=== PATIENT | male | born 1955 | race Caucasian/White ===

== ENCOUNTER → 2019-01-21 10:48 | Outpatient (CLI) | payer OTHER, SELFPAY ==
[2019-01-21 10:29] VITALS: BMI 34.0
[2019-01-21 12:39] LABS: ALB/GLOB Ratio 1.1 RATIO (0.9-2.4); AST(SGOT) 23 U/L (15-37); Alanine Aminotransfer ALT/SGPT 20 U/L (16-61); Albumin, Serum 3.8 g/dL (3.2-5.0); Alkaline Phosphatase 106 U/L (45-117); Anion Gap 6 (5-15); BUN 5 mg/dL (7-18); BUN/Creat Ratio 4.8 RATIO (10-20); Calcium,Total 8.7 mg/dL (8.5-10.1); Chloride 106 mmol/L (98-107); Cholesterol 177 mg/dL (200); Creatinine, Serum 1.04 mg/dL (0.70-1.30); EST Glomerular Filtration Rate 77 mL/min (>60); Est Glom Filt Rate - Afr Amer 93 mL/min (>60); Globulin 3.5 g/dL (2.2-4.2); Glucose 89 mg/dL (74-106); High Density Lipoprotein 31 mg/dL; Potassium 4.1 mmol/L (3.5-5.1); Protein, Total 7.3 g/dL (6.4-8.2); Sodium Level 140 mmol/L (136-145); Triglycerides 194 mg/dL; Very Low Density Lipoprotein 39 mg/dL (5-40)
== END ==
PROVIDERS: PCP Internal Medicine; Visit Provider Internal Medicine
DX: E78.5 Hyperlipidemia, unspecified (principal)
CPT/HCPCS: 36415; 80053; 80061

== ENCOUNTER → 2019-02-15 13:31 | Outpatient (CLI) | payer OTHER, SELFPAY ==
[2019-01-21 10:29] VITALS: BMI 34.0
[2019-02-04 14:40] VITALS: BMI 34.0
--- NOTE | 2019-02-15 13:34 | CT_ITS ---
STUDY: LOW DOSE CT LUNG CANCER SCREENING REASON FOR EXAM: Male, 63 years old. 60 pack-year smoking history. RADIATION DOSAGE (If Supplied By Facility): CTDIvol = ( 3.40 ) mGy, DLP = ( 114.01 ) mGycm TECHNIQUE: No contrast was administered. Low dose technique was utilized (average mAS-38 and kVp 120). 1.25 mm axial source images with a slice interval of 1.25-mm were reconstructed in lung windows. 2.5 mm axial source images with a slice interval of 2.5-mm were reconstructed in lung windows. 5.0 mm axial source images with a slice interval of 5.0-mm were reconstructed in soft tissue windows. Nodule measured using lung windows on PACS and/or independent workstation with automated measurement of minimum and maximum diameter. Nodule measurement reported as average diameter rounded to the nearest whole number. Growth is defined as an increase ins size of greater than 1.5 mm. COMPARISON: None. NODULES: Total lung nodules (excluding granulomas): 0 Emphysema: There is mild emphysematous changes throughout both lungs. Endobronchial lesion: None Aorta: Minimal atherosclerotic changes of the thoracic aorta without aneurysm. Coronary arteries: Mild coronary artery calcifications. Heart: Normal in size. Pulmonary artery: Normal in size. Mediastinal nodes: There is a single 1.4 x 0.6 x 0.7 cm peritracheal lymph node. No other lymphadenopathy is noted. Other chest and abdominal findings: Minimal degenerative changes of the thoracic spine. CT/Low Dose CT Lung Screening IMPRESSION: Lung-RADS category 1 - Continue annual screening with LDCT in 12 months. IMPORTANT NOTES FOR USE: ACR Lung-RADS Version 1.0 Assessment Categories Release Date: October 31, 2013 Category: Coded 0-4 bases on nodule(s) with highest degree of suspicion. Negative screen is defined as categories 1 and 2; a positive screen is defined as categories 3 and 4. Category 3 and 4A nodules that are unchanged on interval CT should be coded as category 2, and individuals returned to screening in 12 months. Category 4X: Category 3 or 4 nodules with additional imaging findings that increase the suspicion of lung cancer, such as spiculation, GGN that doubles in size in 1 year, enlarged lymph notes, etc. Category Modifiers: S (significant finding unrelated to lung cancer) and C (prior history of treated lung cancer) may be added to the 0-4 Lung-RADS Electronically Signed: Román Craft DO at 22:31 EDT Tel [phone], Service support ,
== END ==
PROVIDERS: Family Provider Internal Medicine; PCP Internal Medicine; Referring Provider Internal Medicine; Visit Provider Internal Medicine
DX: Z12.2 Encounter for screening for malignant neoplasm of respiratory organs (principal); F17.210 Nicotine dependence, cigarettes, uncomplicated
CPT/HCPCS: G0297

== ENCOUNTER → 2020-01-30 13:33 | Outpatient (CLI) | payer OTHER, SELFPAY ==
[2020-01-30 13:17] VITALS: BMI 34.0
[2020-01-30 15:07] LABS: Absolute Lymphocyte Count 3.12 X10^3/uL (0.83-4.51); Absolute Neutrophil Count 5.4 X10^3/uL (2.0-7.7); Basophil# 0.05 X10^3/uL; Basophil% 0.5 % (0-1); Eosinophil# 0.25 X10^3/uL; Eosinophils% 2.6 % (0-5); Hematocrit 41.5 % (40-54); Hemoglobin 13.8 g/dL (13.0-16.5); Lymphocyte # 3.12 X10^3/ul (4.0); Lymphocyte % 32.7 % (19-41); Mean Corp Hgb Conc 33.3 g/dL (32-36); Mean Corpuscular Hgb 30.1 pg (27.0-32.0); Mean Corpuscular Volume 90.4 fL (80-94); Mean Platelet Vol. 9.6 fl (6.2-12.0); Monocyte# 0.72 X10^3/uL; Monocyte% 7.6 % (0-10); NRBC Flagged by Analyzer 0 % (0-5); Neutrophil # 5.37 X10^3/uL (2.7-7.7); Neutrophil % 56.4 % (47-70); Platelet Count 299 K/mm3 (150-450); RBC Distribution Width CV 13.2 % (11.6-14.6); RBC Distribution Width SD 43.3 fl (35.1-43.9); Red Blood Count 4.59 M/mm3 (4.6-6.2); White Blood Count 9.5 K/mm3 (4.4-11.0)
[2020-01-30 15:29] LABS: ALB/GLOB Ratio 1.1 RATIO (0.9-2.4); AST(SGOT) 23 U/L (15-37); Alanine Aminotransfer ALT/SGPT 23 U/L (16-61); Alkaline Phosphatase 91 U/L (45-117); Anion Gap 2 (5-15); BUN 10 mg/dL (7-18); BUN/Creat Ratio 10.5 RATIO (10-20); Calcium,Total 8.8 mg/dL (8.5-10.1); Chloride 106 mmol/L (98-107); Cholesterol 166 mg/dL (200); Creatinine, Serum 0.95 mg/dL (0.70-1.30); EST Glomerular Filtration Rate 85 mL/min (>60); Est Glom Filt Rate - Afr Amer 103 mL/min (>60); Globulin 3.6 g/dL (2.2-4.2); Glucose 90 mg/dL (74-106); High Density Lipoprotein 30 mg/dL; PSA,Total - Annual Screen 0.78 ng/mL (0.00-4.00); Potassium 4.1 mmol/L (3.5-5.1); Protein, Total 7.6 g/dL (6.4-8.2); Sodium Level 136 mmol/L (136-145); Triglycerides 158 mg/dL; Very Low Density Lipoprotein 32 mg/dL (5-40)
== END ==
PROVIDERS: PCP Internal Medicine; Referring Provider Internal Medicine; Visit Provider Internal Medicine
DX: Z00.00 Encounter for general adult medical examination without abnormal findings (principal); E78.5 Hyperlipidemia, unspecified; F32.9 Major depressive disorder, single episode, unspecified; F41.9 Anxiety disorder, unspecified
CPT/HCPCS: 36415; 80053; 80061; 84153; 85025; G0103

== ENCOUNTER → 2021-01-21 13:31 | Outpatient (CLI) | payer MEDICARE, SELFPAY ==
[2021-01-21 13:12] VITALS: BMI 34.0
[2021-01-21 15:12] LABS: Absolute Lymphocyte Count 2.67 X10^3/uL (0.83-4.51); Absolute Neutrophil Count 5.8 X10^3/uL (2.0-7.7); Basophil# 0.06 X10^3/uL; Basophil% 0.6 % (0-1); Eosinophil# 0.21 X10^3/uL; Eosinophils% 2.2 % (0-5); Hematocrit 45.5 % (40-54); Lymphocyte # 2.67 X10^3/ul (0.83-4.51); Lymphocyte % 28.2 % (19-41); Mean Corpuscular Hgb 29.6 pg (27.0-32.0); Mean Corpuscular Volume 89.9 fL (80-94); Mean Platelet Vol. 9.4 fl (6.2-12.0); Monocyte# 0.66 X10^3/uL; NRBC Flagged by Analyzer 0 % (0-5); Neutrophil # 5.84 X10^3/uL (2.7-7.7); Neutrophil % 61.6 % (47-70); Platelet Count 332 K/mm3 (150-450); RBC Distribution Width CV 13.4 % (11.6-14.6); RBC Distribution Width SD 43.9 fl (35.1-43.9); Red Blood Count 5.06 M/mm3 (4.6-6.2); White Blood Count 9.5 K/mm3 (4.4-11.0)
[2021-01-21 15:47] LABS: ALB/GLOB Ratio 1.1 RATIO (0.9-2.4); AST(SGOT) 16 U/L (15-37); Alanine Aminotransfer ALT/SGPT 21 U/L (16-61); Albumin, Serum 3.9 g/dL (3.2-5.0); Alkaline Phosphatase 89 U/L (45-117); Anion Gap 4 (5-15); BUN 6 mg/dL (7-18); BUN/Creat Ratio 6.7 RATIO (10-20); Calcium,Total 9.1 mg/dL (8.5-10.1); Chloride 106 mmol/L (98-107); Cholesterol 170 mg/dL (200); EST Glomerular Filtration Rate 90 mL/min (>60); Est Glom Filt Rate - Afr Amer 109 mL/min (>60); Globulin 3.5 g/dL (2.2-4.2); Glucose 88 mg/dL (74-106); High Density Lipoprotein 28 mg/dL; Protein, Total 7.4 g/dL (6.4-8.2); Sodium Level 138 mmol/L (136-145); Triglycerides 195 mg/dL; Very Low Density Lipoprotein 39 mg/dL (5-40)
== END ==
PROVIDERS: PCP Internal Medicine; Visit Provider Internal Medicine
DX: E78.5 Hyperlipidemia, unspecified (principal); N40.0 Benign prostatic hyperplasia without lower urinary tract symptoms
CPT/HCPCS: 36415; 80053; 80061; 85025

== ENCOUNTER → 2022-02-24 | Outpatient (CLI) | payer MEDICARE, SELFPAY ==
[2022-02-24 15:03] LABS: Absolute Lymphocyte Count 3.37 X10^3/uL (0.83-4.51); Absolute Neutrophil Count 4.9 X10^3/uL (2.0-7.7); Basophil# 0.05 X10^3/uL; Basophil% 0.5 % (0-1); Eosinophil# 0.19 X10^3/uL; Eosinophils% 2.1 % (0-5); Hematocrit 43.6 % (40-54); Hemoglobin 14.6 g/dL (13.0-16.5); Lymphocyte # 3.37 X10^3/ul (0.83-4.51); Lymphocyte % 36.6 % (19-41); Mean Corp Hgb Conc 33.5 g/dL (32-36); Mean Corpuscular Hgb 30.1 pg (27.0-32.0); Mean Corpuscular Volume 89.9 fL (80-94); Mean Platelet Vol. 9.6 fl (6.2-12.0); Monocyte# 0.63 X10^3/uL; Monocyte% 6.8 % (0-10); NRBC Flagged by Analyzer 0 % (0-5); Neutrophil # 4.94 X10^3/uL (2.7-7.7); Neutrophil % 53.7 % (47-70); Platelet Count 307 K/mm3 (150-450); RBC Distribution Width CV 13.5 % (11.6-14.6); RBC Distribution Width SD 44.1 fl (35.1-43.9); Red Blood Count 4.85 M/mm3 (4.6-6.2); White Blood Count 9.2 K/mm3 (4.4-11.0)
[2022-02-24 15:38] LABS: ALB/GLOB Ratio 1.1 RATIO (0.9-2.4); AST(SGOT) 22 U/L (15-37); Alanine Aminotransfer ALT/SGPT 27 U/L (16-61); Albumin, Serum 3.9 g/dL (3.2-5.0); Alkaline Phosphatase 81 U/L (45-117); Anion Gap 6 (5-15); BUN 8 mg/dL (7-18); BUN/Creat Ratio 8.5 RATIO (10-20); Calcium,Total 8.8 mg/dL (8.5-10.1); Chloride 105 mmol/L (98-107); Cholesterol 161 mg/dL (200); Creatinine, Serum 0.94 mg/dL (0.70-1.30); EST Glomerular Filtration Rate 85 mL/min (>60); Est Glom Filt Rate - Afr Amer 103 mL/min (>60); Globulin 3.7 g/dL (2.2-4.2); Glucose 87 mg/dL (74-106); High Density Lipoprotein 30 mg/dL; PSA,Total - Annual Screen 1.08 ng/mL (0.00-4.00); Potassium 4.3 mmol/L (3.5-5.1); Protein, Total 7.6 g/dL (6.4-8.2); Sodium Level 139 mmol/L (136-145); Triglycerides 153 mg/dL; Very Low Density Lipoprotein 31 mg/dL (5-40)
== END | disposition home or self-care (01) ==
LOC: BIMLAB 13:24
PROVIDERS: PCP Internal Medicine; Visit Provider Internal Medicine
DX: M54.9 Dorsalgia, unspecified (principal); F41.9 Anxiety disorder, unspecified; F32.9 Major depressive disorder, single episode, unspecified; E78.5 Hyperlipidemia, unspecified; N40.0 Benign prostatic hyperplasia without lower urinary tract symptoms; Z12.5 Encounter for screening for malignant neoplasm of prostate
CPT/HCPCS: 36415; 80053; 80061; 84153; 85025; G0103

== ENCOUNTER → 2022-11-17 | Outpatient (CLI) | payer MEDICARE, SELFPAY ==
[2022-11-17 16:02] LABS: Absolute Lymphocyte Count 2.73 X10^3/uL (0.83-4.51); Absolute Neutrophil Count 7.3 X10^3/uL (2.0-7.7); Basophil# 0.06 X10^3/uL; Basophil% 0.5 % (0-1); Eosinophil# 0.14 X10^3/uL; Eosinophils% 1.3 % (0-5); Hematocrit 44.6 % (40-54); Hemoglobin 14.8 g/dL (13.0-16.5); Lymphocyte # 2.73 X10^3/ul (0.83-4.51); Lymphocyte % 24.6 % (19-41); Mean Corp Hgb Conc 33.2 g/dL (32-36); Mean Corpuscular Hgb 30.1 pg (27.0-32.0); Mean Corpuscular Volume 90.8 fL (80-94); Mean Platelet Vol. 9.3 fl (6.2-12.0); Monocyte# 0.83 X10^3/uL; Monocyte% 7.5 % (0-10); NRBC Flagged by Analyzer 0 % (0-5); Neutrophil # 7.31 X10^3/uL (2.7-7.7); Neutrophil % 65.7 % (47-70); Platelet Count 324 K/mm3 (150-450); RBC Distribution Width CV 13.2 % (11.6-14.6); RBC Distribution Width SD 44.5 fl (35.1-43.9); Red Blood Count 4.91 M/mm3 (4.6-6.2); White Blood Count 11.1 K/mm3 (4.4-11.0)
[2022-11-17 16:35] LABS: ALB/GLOB Ratio 1.2 RATIO (0.9-2.4); AST(SGOT) 18 U/L (15-37); Alanine Aminotransfer ALT/SGPT 18 U/L (16-61); Albumin, Serum 4.2 g/dL (3.2-5.0); Alkaline Phosphatase 81 U/L (45-117); Anion Gap 8 (5-15); BUN 12 mg/dL (7-18); Calcium,Total 9.3 mg/dL (8.5-10.1); Chloride 104 mmol/L (98-107); Cholesterol 163 mg/dL (200); EST Glomerular Filtration Rate 79 mL/min (>60); Est Glom Filt Rate - Afr Amer 96 mL/min (>60); Globulin 3.4 g/dL (2.2-4.2); Glucose 91 mg/dL (74-106); High Density Lipoprotein 32 mg/dL; Potassium 4.4 mmol/L (3.5-5.1); Protein, Total 7.6 g/dL (6.4-8.2); Sodium Level 137 mmol/L (136-145); Triglycerides 162 mg/dL; Very Low Density Lipoprotein 32 mg/dL (5-40)
== END | disposition home or self-care (01) ==
LOC: BIMLAB 13:47
PROVIDERS: PCP Internal Medicine; Referring Provider Internal Medicine; Visit Provider Internal Medicine
DX: N40.0 Benign prostatic hyperplasia without lower urinary tract symptoms (principal); E78.5 Hyperlipidemia, unspecified
CPT/HCPCS: 36415; 80053; 80061; 84153; 85025

== ENCOUNTER → 2023-09-01 | Outpatient (CLI) | payer MEDICARE, SELFPAY ==
--- NOTE | 2023-09-01 16:06 | CT_ITS ---
EXAM: CT CHEST, LUNG CANCER SCREENING WITHOUT INTRAVENOUS CONTRAST CLINICAL INDICATION: Lung cancer screening -- and gt;20 pack year asymptomatic, current smoker TECHNIQUE: Helically acquired images were obtained of the chest without intravenous contrast using low dose (LDCT) lung cancer screening protocol. This CT exam was performed using one or more of the following dose reduction techniques: automated exposure control, adjustment of the mA and/or kV according to patient size, and/or use of iterative reconstruction technique. COMPARISON: CT Lung Cancer Screening dated 02/15/2019 FINDINGS: LUNGS AND PLEURAL SPACES: Diffuse centrilobular pulmonary emphysema. No evidence of lung mass or nodule. No pleural effusion or thickening. No pneumothorax. HEART: Normal. No pericardial effusion. Normal heart size. Mild coronary artery calcification. MEDIASTINUM: Normal. No mediastinal or hilar adenopathy. Esophagus is unremarkable. No hiatal hernia. THYROID: Normal. No thyroid nodules or calcification. BONES/JOINTS: No suspicious lytic or blastic abnormality. VASCULATURE: No aortic aneurysm. LYMPH NODES: Normal. No enlarged lymph nodes. CT/Low Dose CT Lung Screening IMPRESSION: 1. No evidence of a lung mass or nodule. 2. Centrilobular pulmonary emphysema. Lung-RADS score: 1S - Negative. Additional clinically significant or potentially clinically significant findings are described. Recommend continued annual screening with a low-dose CT (LDCT) in 12 months. Electronically Signed: Luis Fernando Murguia MD at 16:51 EST ,
== END | disposition home or self-care (01) ==
LOC: CT 16:05
PROVIDERS: PCP Internal Medicine; Referring Provider Nurse Practitioner Family; Visit Provider Nurse Practitioner Family
DX: Z12.2 Encounter for screening for malignant neoplasm of respiratory organs (principal); Z87.891 Personal history of nicotine dependence
CPT/HCPCS: 71271

== ENCOUNTER → 2023-11-18 | Outpatient (CLI) | payer MEDICARE, SELFPAY ==
[2023-11-18 16:56] LABS: Absolute Lymphocyte Count 3.09 X10^3/uL (0.83-4.51); Basophil# 0.09 X10^3/uL; Basophil% 0.9 % (0-1); Eosinophil# 0.24 X10^3/uL; Eosinophils% 2.3 % (0-5); Hematocrit 43.6 % (40-54); Hemoglobin 14.6 g/dL (13.0-16.5); Lymphocyte # 3.09 X10^3/ul (0.83-4.51); Lymphocyte % 29.9 % (19-41); Mean Corp Hgb Conc 33.5 g/dL (32-36); Mean Corpuscular Volume 89.5 fL (80-94); Mean Platelet Vol. 9.3 fl (6.2-12.0); Monocyte# 0.85 X10^3/uL; Monocyte% 8.2 % (0-10); NRBC Flagged by Analyzer 0 % (0-5); Neutrophil # 6.01 X10^3/uL (2.7-7.7); Neutrophil % 58.2 % (47-70); Platelet Count 332 K/mm3 (150-450); RBC Distribution Width CV 13.6 % (11.6-14.6); RBC Distribution Width SD 44.7 fl (35.1-43.9); Red Blood Count 4.87 M/mm3 (4.6-6.2); White Blood Count 10.3 K/mm3 (4.4-11.0)
[2023-11-18 17:20] LABS: ALB/GLOB Ratio 1.1 RATIO (0.9-2.4); AST(SGOT) 20 U/L (15-37); Alanine Aminotransfer ALT/SGPT 21 U/L (16-61); Albumin, Serum 3.7 g/dL (3.2-5.0); Alkaline Phosphatase 88 U/L (45-117); Anion Gap 4 (5-15); BUN 5 mg/dL (7-18); BUN/Creat Ratio 5.5 RATIO (10-20); Calcium,Total 8.8 mg/dL (8.5-10.1); Chloride 109 mmol/L (98-107); Cholesterol 140 mg/dL (200); EST Glomerular Filtration Rate 89 mL/min (>60); Est Glom Filt Rate - Afr Amer 107 mL/min (>60); Globulin 3.4 g/dL (2.2-4.2); Glucose 81 mg/dL (74-106); High Density Lipoprotein 36 mg/dL; PSA,Total - Annual Screen 1.64 ng/mL (0.00-4.00); Potassium 4.1 mmol/L (3.5-5.1); Protein, Total 7.1 g/dL (6.4-8.2); Sodium Level 138 mmol/L (136-145); Triglycerides 130 mg/dL; Very Low Density Lipoprotein 26 mg/dL (5-40)
== END | disposition home or self-care (01) ==
LOC: BIMLAB 15:09
PROVIDERS: PCP Internal Medicine; Visit Provider Internal Medicine
DX: Z12.5 Encounter for screening for malignant neoplasm of prostate (principal); E78.5 Hyperlipidemia, unspecified; F41.9 Anxiety disorder, unspecified; F32.9 Major depressive disorder, single episode, unspecified
CPT/HCPCS: 36415; 80053; 80061; 84153; 85025; G0103

== ENCOUNTER → 2023-12-08 | Outpatient (CLI) | payer MEDICARE, SELFPAY | END | disposition home or self-care (01) | LOC: PSN 09:39 | PROVIDERS: PCP Internal Medicine; Referring Provider Internal Medicine; Visit Provider Internal Medicine | DX: J44.9 Chronic obstructive pulmonary disease, unspecified (principal); R06.02 Shortness of breath | CPT/HCPCS: 94060; 94726; 94729 ==

== ENCOUNTER 2023-12-25 14:05 | Emergency (ER) | payer MEDICARE, SELFPAY ==
[2023-12-25 14:06] VITALS: BP 105/83; PULSE 100; RESP 16; TEMP 36.7; O2SAT 95; BMI 30.4
[2023-12-25 14:08] VITALS: BP 105/83; PULSE 101; RESP 16; TEMP 36.7; O2SAT 95
--- NOTE | 2023-12-25 14:20 | CT_ITS ---
STUDY: CT ABDOMEN AND PELVIS WITHOUT CONTRAST REASON FOR EXAM: Male, 68 years old. Right flank pain RADIATION DOSAGE (If Supplied By Facility): CTDIvol = ( 11.42 ) mGy, DLP = ( 564.70 ) mGycm TECHNIQUE: Transaxial images were obtained from the dome of the diaphragm to the symphysis pubis without oral contrast, and without intravenous contrast. Sagittal and coronal images were reconstructed. Individualized dose optimization techniques were used for this CT. COMPARISON: None. FINDINGS: Calcified granuloma in the right lower lobe. Coronary artery calcification. Normal liver. Normal gallbladder and extrahepatic biliary system. Normal spleen. Normal pancreas. Normal bilateral adrenal glands. Nonspecific bilateral perinephric stranding. Inflammatory process such as a urinary tract infection or Admission BE ruled out. There is a 3.3 cm x 2.9 cm cyst in the medial midportion of the left kidney. No obstructive uropathy is seen at this time. Incidental note is made of a left retroaortic renal vein. Normal visualized stomach. Normal small intestine. Normal colon. The appendix is visualized and appears normal. There is diffuse atherosclerotic calcification of the abdominal aorta, without a demonstrated aneurysm. Normal inferior vena cava. Normal retroperitoneum. Diffuse bladder wall thickening. Small inguinal hernias containing fat. Small bilateral inguinal lymph nodes. Straightening of the normal lumbar lordosis. Multilevel spondylosis and disc space narrowing. This is worse at the L5-S1 level. CT/Abdomen/Pelvis without Cont IMPRESSION: Diffuse bladder wall thickening. Nonspecific bilateral perinephric stranding. Urinary tract infection or pyelonephritis should BE ruled out. Electronically Signed: Manuel Rahman MD at 15:06 EDT ,
[2023-12-25] MEDS: Morphine 4 MG/ML Syringe IV (14:29)
[2023-12-25] MEDS: Ondansetron 4 MG/2 ML Vial IV (14:29)
[2023-12-25] MEDS: 0.9% Normal Saline (1000mL) 1,000 ML 999 ML IV (14:30)
--- NOTE | 2023-12-25 14:35 | EDS_ITS ---
HPI <CONCHITA Dial - Last Filed: 12/25/23 16:23> History of Present Illness Chief Complaint: Flank Pain Narrative Narrative: 68-year-old male states he woke up this morning and had severe right flank and side pain that radiates to the groin. He had a bowel movement with loose stools and felt somewhat better. He took a nap and after waking up the pain was severe again. He denies fever chills nausea or vomiting. No urinary symptoms. He states he is a chronic weak urine stream but has not noticed burning or hematuria. He does report months of intermittent abdominal pains that changes locations that he is always attributed to gas. He takes simethicone. He has a bowel movement about every 3 days and if he does not go he takes a laxative. He has not taken any laxatives this week. No abdominal surgical history. He smokes, denies alcohol use. [facility] <CONCHITA Dial - Last Filed: 12/25/23 16:23> [facility] Medical History (Updated 12/25/23 @ 16:18 by CONCHITA Dial) Impacted cerumen of left ear COPD (chronic obstructive pulmonary disease) Shortness of breath Encounter for screening for malignant neoplasm of lung Flu vaccine need Sinusitis Headache BPH (benign prostatic hyperplasia) Elevated blood pressure reading Change in skin mole Health care maintenance Compulsive behavior Anxiety and depression Decreased hearing of left ear Sleep disorder Vision problems Skin cancer H/O emotional problems Home Medications ?Medication ?Instructions ?Recorded ?Last Taken ?Type levocetirizine 5 mg tablet (Xyzal) 5 mg PO DAILY 05/21/23 Unknown History triamcinolone acetonide 55 mcg 1 spray intranasal DAILY 05/21/23 Unknown History nasal spray aerosol (Nasacort Allergy) trazodone 50 mg tablet 50 mg PO QHS PRN insomnia #90 tabs 08/28/23 Unknown Rx quetiapine 150 mg tablet,extended See Rx Instructions .Route 11/09/23 Unknown Rx release 24 hr .COMPLEX #90 TABLETS venlafaxine 150 mg tablet,extended 150 mg PO DAILY #90 tabs 11/09/23 Unknown Rx release 24 hr albuterol sulfate 90 mcg/actuation 2 puff inhalation Q6H PRN 11/18/23 Unknown Rx aerosol inhaler shortness of breath or wheezing #8.5 grams fluticasone fur. 100 mcg-umeclid 1 inh inhalation Q24H #60 ea 11/18/23 Unknown Rx 62.5 mcg-vilant 25 mcg inhalat.powder (Trelegy Ellipta) Allergy/AdvReac Type Severity Reaction Status Date / Time No Known Allergies Allergy Verified 12/25/23 14:09 Family History Other No history Surgical History History of colonoscopy History of removal of skin mole Social History Smoking Status: Current every day smoker tobacco type: cigarettes alcohol intake: current alcohol intake frequency: a few times a month Alcohol type: beer substance use type: does not use what type of physical activity do you participate in: none ROS <CONCHITA Dial - Last Filed: 12/25/23 16:23> ROS ED ROS Narrative Constitutional: Negative for fever, chills, malaise. CVS: Negative for chest pain. Respiratory: Negative for shortness of breath, cough. GI: Positive for abdominal pain. Negative for nausea, vomiting, melena, hematochezia. : Negative for dysuria, hematuria or frequency. EXAM <CONCHITA Dial - Last Filed: 12/25/23 16:23> Physical Exam Narrative Exam Narrative: CONST: Patient sitting in no acute distress. EYES: Normal inspection. NECK: Normal inspection. RESP: No respiratory distress, CTAB. CVS: Regular rate and rhythm, no murmur, no gallop. ABD: Soft with right lower quadrant tenderness, no guarding or rebound, nondistended, no hepatosplenomegaly. Back: Normal inspection, mild right CVA tenderness. SKIN: Color normal, no rash, warm, dry, intact. EXTREMITIES: Normal appearance, no pedal edema. NEURO: Alert and answering questions appropriately. PSYCH: Normal affect. Const Vital Signs: 12/25/23 14:06 12/25/23 14:08 12/25/23 15:08 Temperature 98.1 F 98.1 F 97.8 F Temperature Source Temporal Temporal Axillary Pulse Rate 100 101 H 81 Respiratory Rate 16 16 18 Blood Pressure 105/83 H 105/83 H 111/79 Blood Pressure Mean 90 90 89 Pulse Ox 95 95 98 Oxygen Delivery Method Room Air Room Air 12/25/23 16:22 Temperature 98.6 F Temperature Source Pulse Rate 88 Respiratory Rate 18 Blood Pressure 111/78 Blood Pressure Mean 89 Pulse Ox 98 Oxygen Delivery Method <Dr. Jose Del Toro DO - Last Filed: 12/25/23 20:15> Physical Exam Const Vital Signs: 12/25/23 14:06 12/25/23 14:08 12/25/23 15:08 Temperature 98.1 F 98.1 F 97.8 F Temperature Source Temporal Temporal Axillary Pulse Rate 100 101 H 81 Respiratory Rate 16 16 18 Blood Pressure 105/83 H 105/83 H 111/79 Blood Pressure Mean 90 90 89 Pulse Ox 95 95 98 Oxygen Delivery Method Room Air Room Air 12/25/23 16:22 Temperature 98.6 F Temperature Source Pulse Rate 88 Respiratory Rate 18 Blood Pressure 111/78 Blood Pressure Mean 89 Pulse Ox 98 Oxygen Delivery Method MDM <CONCHITA Dial - Last Filed: 12/25/23 16:23> [facility] Narrative Medical decision making narrative: Differential: Kidney stone, pyelonephritis, UTI, appendicitis, constipation Patient has right flank and right lower abdominal pain. Reports 1 episode of loose stool earlier, otherwise no associated symptoms. He appears well and nontoxic. Vital signs stable. He has mild right flank and right lower quadrant tenderness on exam. No peritoneal signs. CBC and BMP are unremarkable. CT scan shows nonspecific bilateral perinephric stranding and bladder wall thickening but urinalysis is negative. Not sure of the etiology of the patient's symptoms. After treatment with morphine and Toradol here he is feeling improved, I discussed alternating Tylenol Motrin at home and following up with his primary care doctor. He was discharged in stable condition. Lab Data Attestation: I reviewed the patient's lab results. Labs: Laboratory Results - last 24 hr 12/25/23 12/25/23 14:25 15:32 WBC 9.8 RBC 4.86 Hgb 14.3 Hct 43.8 MCV 90.1 MCH 29.4 MCHC 32.6 RDW Std Deviation 45.8 H RDW Coeff of Melina 13.7 Plt Count 310 MPV 8.9 Immature Gran % (Auto) 0.400 Neut % (Auto) 65.2 Lymph % (Auto) 24.3 Emmet % (Auto) 6.8 Eos % (Auto) 2.6 Baso % (Auto) 0.7 Absolute Neuts (auto) 6.4 Absolute Lymphs (auto) 2.38 Nucleated RBC % 0 Sodium 136 Potassium 4.4 Chloride 105 Carbon Dioxide 26.0 Anion Gap 5 BUN 8 Creatinine 1.07 Estim Creat Clear Calc 72.27 Est GFR (MDRD) Af Amer 88 Est GFR (MDRD) Non-Af 73 BUN/Creatinine Ratio 7.5 L Glucose 120 H Calcium 9.2 Urine Color Yellow Urine Clarity Clear Urine pH 6.5 Ur Specific [place] 1.010 Urine Protein Negative Urine Glucose (UA) Normal Urine Ketones Negative Urine Occult Blood Negative Urine Nitrite Negative Urine Bilirubin Negative Urine Urobilinogen Normal Ur Leukocyte Esterase Negative Urine RBC 0 SEEN Urine WBC 0 SEEN Ur Squamous Epith Cells 0 SEEN Urine Bacteria 0 SEEN Urine Mucus 0 SEEN Radiography Diagnostic Testing: Clinical Impression(s) from Imaging Studies Abdomen/Pelvis CT 12/25/23 14:20 IMPRESSION: Diffuse bladder wall thickening. Nonspecific bilateral perinephric stranding. Urinary tract infection or pyelonephritis should BE ruled out. Electronically Signed: Manuel Rahman MD at 15:06 EDT , <Dr. Jose Del Toro, DO - Last Filed: 12/25/23 20:15> MDM MDM Narrative Medical decision making narrative: Differential: Kidney stone, pyelonephritis, UTI, appendicitis, constipation Patient has right flank and right lower abdominal pain. Reports 1 episode of loose stool earlier, otherwise no associated symptoms. He appears well and nontoxic. Vital signs stable. He has mild right flank and right lower quadrant tenderness on exam. No peritoneal signs. CBC and BMP are unremarkable. CT scan shows nonspecific bilateral perinephric stranding and bladder wall thickening but urinalysis is negative. Not sure of the etiology of the patient's symptoms. After treatment with morphine and Toradol here he is feeling improved, I discussed alternating Tylenol Motrin at home and following u p with his primary care doctor. He was discharged in stable condition. This patient was seen with a PA/EARLY CHILDHOOD EDUCATION INSTRUCTOR Individually assessed they patient including history and physical. I have reviewed everything on the chart that is available and agree with the documentation provided by the PA/EARLY CHILDHOOD EDUCATION INSTRUCTOR including discussion about the assessment, treatment plan, discussion, and return precautions. Patient presenting with right-sided abdominal pain/flank pain. Differential as above. Exam is benign. No CVA tenderness noted. CBC showed normal white blood cell count, hemoglobin, platelets. Showed normal renal function electrolytes as well. Urinalysis negative for infection. CT of the abdomen pelvis was obtained and shows diffuse bladder wall thickening and nonspecific bilateral perinephric stranding. Urinalysis is negative however. He does not have any CVA tenderness. He feels better on reevaluation I feel he stable for discharge home. Return precautions were discussed. Lab Data Labs: Laboratory Results - last 24 hr 12/25/23 12/25/23 14:25 15:32 WBC 9.8 RBC 4.86 Hgb 14.3 Hct 43.8 MCV 90.1 MCH 29.4 MCHC 32.6 RDW Std Deviation 45.8 H RDW Coeff of Melina 13.7 Plt Count 310 MPV 8.9 Immature Gran % (Auto) 0.400 Neut % (Auto) 65.2 Lymph % (Auto) 24.3 Emmet % (Auto) 6.8 Eos % (Auto) 2.6 Baso % (Auto) 0.7 Absolute Neuts (auto) 6.4 Absolute Lymphs (auto) 2.38 Nucleated RBC % 0 Sodium 136 Potassium 4.4 Chloride 105 Carbon Dioxide 26.0 Anion Gap 5 BUN 8 Creatinine 1.07 Estim Creat Clear Calc 72.27 Est GFR (MDRD) Af Amer 88 Est GFR (MDRD) Non-Af 73 BUN/Creatinine Ratio 7.5 L Glucose 120 H Calcium 9.2 Urine Color Yellow Urine Clarity Clear Urine pH 6.5 Ur Specific [place] 1.010 Urine Protein Negative Urine Glucose (UA) Normal Urine Ketones Negative Urine Occult Blood Negative Urine Nitrite Negative Urine Bilirubin Negative Urine Urobilinogen Normal Ur Leukocyte Esterase Negative Urine RBC 0 SEEN Urine WBC 0 SEEN Ur Squamous Epith Cells 0 SEEN Urine Bacteria 0 SEEN Urine Mucus 0 SEEN Radiography Diagnostic Testing: Clinical Impression(s) from Imaging Studies Abdomen/Pelvis CT 12/25/23 14:20 IMPRESSION: Diffuse bladder wall thickening. Nonspecific bilateral perinephric stranding. Urinary tract infection or pyelonephritis should BE ruled out. Electronically Signed: Manuel Rahman MD at 15:06 EDT , Discharge Plan Triage Chief Complaint: Flank Pain ED Midlevel Provider: Madeleine Parry ED Provider: Jose Del Toro Dx/Rx/DC Orders Clinical Impression: Acute right flank pain Instructions: Abdominal Pain, ED Flank Pain, Uncertain Cause Prescriptions: No Action levocetirizine [Xyzal] 5 mg tablet 5 mg PO DAILY triamcinolone acetonide [Nasacort Allergy] 55 mcg aerosol,spray 1 spray intranasal DAILY Rx Instructions: administer into each nostril albuterol sulfate 90 mcg/actuation HFA aerosol inhaler 2 puff inhalation Q6H PRN (Reason: shortness of breath or wheezing) Qty: 8.5 2RF Trelegy Ellipta 100-62.5-25 mcg blister with device 1 inh inhalation Q24H Qty: 60 2RF trazodone 50 mg tablet 50 mg PO QHS PRN (Reason: insomnia) Qty: 90 0RF quetiapine 150 mg tablet extended release 24 hr See Rx Instructions .ROUTE .COMPLEX Qty: 90 0RF Dose Instruction: TAKE ONE TABLET BY MOUTH EVERY DAY Rx Instructions: TAKE ONE TABLET BY MOUTH EVERY DAY venlafaxine 150 mg tablet extended release 24hr 150 mg PO DAILY Qty: 90 0RF Primary Care Provider: Melvin Wharton Referrals: Melvin Wharton MD [Primary Care Provider] - Activity Restrictions/Additional Instructions: The cause of your flank pain is again clear. I recommend alternating Tylenol and Motrin as needed and following up with your doctor. Print Language: Korean Disposition Disposition: Home, Self Care Discharge Date/Time: 12/25/23 16:36
[2023-12-25 14:40] LABS: Absolute Lymphocyte Count 2.38 X10^3/uL (0.83-4.51); Absolute Neutrophil Count 6.4 X10^3/uL (2.0-7.7); Basophil# 0.07 X10^3/uL; Basophil% 0.7 % (0-1); Eosinophil# 0.25 X10^3/uL; Eosinophils% 2.6 % (0-5); Hematocrit 43.8 % (40-54); Hemoglobin 14.3 g/dL (13.0-16.5); Lymphocyte # 2.38 X10^3/ul (0.83-4.51); Lymphocyte % 24.3 % (19-41); Mean Corp Hgb Conc 32.6 g/dL (32-36); Mean Corpuscular Hgb 29.4 pg (27.0-32.0); Mean Corpuscular Volume 90.1 fL (80-94); Mean Platelet Vol. 8.9 fl (6.2-12.0); Monocyte# 0.67 X10^3/uL; Monocyte% 6.8 % (0-10); NRBC Flagged by Analyzer 0 % (0-5); Neutrophil # 6.38 X10^3/uL (2.7-7.7); Neutrophil % 65.2 % (47-70); Platelet Count 310 K/mm3 (150-450); RBC Distribution Width CV 13.7 % (11.6-14.6); RBC Distribution Width SD 45.8 fl (35.1-43.9); Red Blood Count 4.86 M/mm3 (4.6-6.2); White Blood Count 9.8 K/mm3 (4.4-11.0)
[2023-12-25 14:59] LABS: Anion Gap 5 (5-15); BUN 8 mg/dL (7-18); BUN/Creat Ratio 7.5 RATIO (10-20); Calcium,Total 9.2 mg/dL (8.5-10.1); Chloride 105 mmol/L (98-107); Creatinine, Serum 1.07 mg/dL (0.70-1.30); EST Glomerular Filtration Rate 73 mL/min (>60); Est Glom Filt Rate - Afr Amer 88 mL/min (>60); Estimated Creatinine Clearance 72.27 ml/min; Glucose 120 mg/dL (74-106); Potassium 4.4 mmol/L (3.5-5.1); Sodium Level 136 mmol/L (136-145)
[2023-12-25 15:08] VITALS: BP 111/79; PULSE 81; RESP 18; TEMP 36.6; O2SAT 98
[2023-12-25 15:39] LABS: Bacteria 0 SEEN /hpf (None Seen); Mucous, Urine 0 SEEN /hpf (<or=2+); Red Blood Cells-Urine 0 SEEN /hpf (0-5); Squamous Epithelial Cells - UA 0 SEEN /hpf (0-5); White Blood Cells 0 SEEN /hpf (0-5)
[2023-12-25 15:43] LABS: Color, Urine Yellow (Yellow); Glucose, Dipstick Normal (Normal); Ketone-Dipstick Negative (Negative); Leukocyte Esterase-Dipstick Negative /ul (Negative); Nitrite-Dipstick Negative (Negative); Occult Blood-Urine Negative /ul (Negative); Protein-Dipstick Negative (Negative); Urine Bilirubin Dipstick Negative (Negative); Urine Clarity Clear (Clear); Urine Urobilinogen Normal (Normal); Urine pH 6.5 (5.0 - 8.0)
[2023-12-25] MEDS: Ketorolac 15 MG/ML Vial IV (15:52)
[2023-12-25 16:22] VITALS: BP 111/78; PULSE 88; RESP 18; TEMP 37; O2SAT 98
== END 2023-12-25 16:36 | disposition home or self-care (01) ==
PROVIDERS: Physician Assistant; Emergency Provider Student in an Organized Health Care Education/Training Program; PCP Internal Medicine; Visit Provider Student in an Organized Health Care Education/Training Program
DX: R10.31 Right lower quadrant pain (principal); J44.9 Chronic obstructive pulmonary disease, unspecified; R19.7 Diarrhea, unspecified; N40.0 Benign prostatic hyperplasia without lower urinary tract symptoms; F17.210 Nicotine dependence, cigarettes, uncomplicated
CPT/HCPCS: 74176; 80048; 81001; 85025; 96361; 96374; 96375; 99284; J7030; A4216; J2405

== ENCOUNTER → 2024-03-25 | Outpatient (CLI) | payer MEDICARE, SELFPAY ==
--- NOTE | 2024-03-25 15:50 | CT_ITS ---
STUDY: CT ABDOMEN AND PELVIS WITHOUT CONTRAST REASON FOR EXAM: Male, [address] Bladder Thickening RADIATION DOSAGE (If Supplied By Facility): CTDIvol = ( 13.75 ) mGy, DLP = ( 693.87 ) mGycm TECHNIQUE: Transaxial images were obtained from the dome of the diaphragm to the symphysis pubis without oral contrast, and without intravenous contrast. Sagittal and coronal images were reconstructed. Individualized dose optimization techniques were used for this CT. COMPARISON: December 25, 2023 FINDINGS: Minor chronic interstitial thickening in left lower lobe. The visualized portions of the heart are within normal limits. Normal liver. Normal gallbladder and extrahepatic biliary system. Normal spleen. Normal pancreas. Normal bilateral adrenal glands. No evidence for renal obstruction. There is a simple cyst in left kidney which will not require additional imaging. There is stranding in the perinephric fat bilaterally which may be on the basis of prior inflammatory disease or passage of stones. . Normal visualized stomach. Normal small intestine. Normal colon. The appendix is visualized and appears normal. Atherosclerotic changes of the aorta. There is there is a small focal segmental medial displacement of calcific plaque below the origin of the renal arteries raising question of chronic dissection.. Normal inferior vena cava. Normal retroperitoneum. Diffuse nonspecific chronic concentric thickening of the gipson of the bladder in association with mild prominence of the prostate possibly due to chronic outlet obstruction although cannot exclude chronic inflammatory changes. Bilateral fat-containing inguinal hernias slightly larger on the left. Lumbar spine demonstrates degenerative changes No significant change since prior exam CT/Abdomen/Pelvis without Cont IMPRESSION: Persistent diffuse concentric thickening of the gipson of bladder in association with enlarged prostate possibly due to chronic outlet obstruction. Possibility of chronic cystitis not entirely excluded Other findings as above. Electronically Signed: Dick Quezada MD at 16:22 EDT ,
--- NOTE | 2024-03-25 16:01 | RAD_ITS ---
INDICATION: Radiculopathy EXAMINATION/TECHNIQUE: X-RAY - XR Spine Lumbar Min 4 Views COMPARISON: No relevant prior comparison study available FINDINGS: VERTEBRAE: Preserved vertebral body height. No fracture. No spondylolisthesis. Preservation of the normal lumbar lordosis. No substantial scoliosis. DISCS: Disc space narrowing at L2-L3 and L5-S1. Endplate spondylosis at multiple levels. Mild facet arthropathy of the lower lumbar spine. INCLUDED ABDOMEN: Atherosclerotic calcifications of the abdominal aorta. RAD/L/S Spine Min 4 Views IMPRESSION: Degenerative changes as described above. Electronically Signed: Manoj Mcdaniel MD at 13:04 EDT ,
--- NOTE | 2024-03-25 16:05 | RAD_ITS ---
INDICATION: Radiculopathy EXAMINATION/TECHNIQUE: X-RAY - XR Spine Cervical 4 or 5 Views COMPARISON: None. FINDINGS: VERTEBRAE: Preserved vertebral body height. No fracture. No spondylolisthesis. Preservation of the normal cervical lordosis. Moderate multilevel facet arthropathy. DISCS: Moderate multilevel degenerative disc disease and spondylosis. NECK SOFT TISSUES: No prevertebral soft tissue widening. LUNG APICES: Clear. RAD/Cerv Spine 2 or 3 Views IMPRESSION: No evidence of acute fracture or spondylolisthesis. Moderate multilevel degenerative disc disease and spondylosis. Electronically Signed: Ryan Damon MD at 17:32 EDT ,
== END | disposition home or self-care (01) ==
PROVIDERS: PCP Internal Medicine; Referring Provider Internal Medicine; Visit Provider Internal Medicine
DX: M54.10 Radiculopathy, site unspecified (principal); R93.5 Abnormal findings on diagnostic imaging of other abdominal regions, including retroperitoneum; N32.89 Other specified disorders of bladder
CPT/HCPCS: 72040; 72110; 74176

== ENCOUNTER → 2024-11-08 | Outpatient (CLI) | payer MEDICARE, SELFPAY ==
--- NOTE | 2024-11-08 15:07 | CT_ITS ---
PROCEDURE: LOW DOSE CT LUNG SCREENING 11/08/2024 REASON FOR EXAM: LUNG CANCER SCREENING TECHNIQUE: Low Dose CT Lung screening without contrast. Coronal and Sagittal reconstruction series were provided. One or more dose reduction techniques were used (e.g., Automated exposure control, adjustment of the mA and/or kV according to patient size, use of iterative reconstruction technique). [facility]FERENCE LINK: [facility] Lung-RADS COMPARISON: Low-dose CT 09/01/2023 and 02/15/2019 FINDINGS: PULMONARY NODULES: (Only nodules >3mm are reported) Hardware:None Lymph Nodes:No suspicious adenopathy. Few subcentimeter benign-appearing lymph nodes. Heart and Vasculature:Normal cardiac size. No pericardial effusion. Mild coronary artery calcifications.Atherosclerotic calcifications of the thoracic aorta. Thoracic aorta and pulmonary arteries have normal contours; noncontrast technique limits evaluation. Coronary Artery Calcifications: Mild Thyroid gland is unremarkable. Esophagus is nondilated. Lungs and Airways: Central airways are patent without endobronchial lesions. Moderate diffuse centrilobular emphysema. Patchy opacities in the lung bases, compatible with atelectasis. No focal consolidation. No pneumothorax. No pleural effusion. No suspicious pulmonary nodules. Upper Abdomen:Unremarkable. Bones:Moderate degenerative changes of the thoracic spine. CT/Low Dose CT Lung Screening IMPRESSION: 1. No suspicious pulmonary nodule. 2. Moderate diffuse centrilobular emphysema. Lung-RADS Category: 1 NEGATIVE. RECOMMEND 12-MONTH SCREENING LDCT. Other Significant Findings: None. Reading Location: [facility]
== END | disposition home or self-care (01) ==
LOC: CT 15:00
PROVIDERS: PCP Internal Medicine; Referring Provider Nurse Practitioner Family; Visit Provider Nurse Practitioner Family
DX: Z12.2 Encounter for screening for malignant neoplasm of respiratory organs (principal); Z87.891 Personal history of nicotine dependence
CPT/HCPCS: 71271

== ENCOUNTER → 2024-11-16 | Outpatient (CLI) | payer MEDICARE, SELFPAY ==
[2024-11-16 15:27] LABS: Absolute Lymphocyte Count 2.74 X10^3/uL (0.83-4.51); Absolute Neutrophil Count 4.7 X10^3/uL (2.0-7.7); Basophil# 0.06 X10^3/uL; Basophil% 0.7 % (0-1); Eosinophil# 0.17 X10^3/uL; Hematocrit 41.9 % (40-54); Hemoglobin 13.8 g/dL (13.0-16.5); Lymphocyte # 2.74 X10^3/ul (0.83-4.51); Lymphocyte % 32.4 % (19-41); Mean Corp Hgb Conc 32.9 g/dL (32-36); Mean Corpuscular Hgb 30.1 pg (27.0-32.0); Mean Corpuscular Volume 91.3 fL (80-94); Mean Platelet Vol. 9.7 fl (6.2-12.0); Monocyte# 0.77 X10^3/uL; Monocyte% 9.1 % (0-10); NRBC Flagged by Analyzer 0 % (0-5); Neutrophil # 4.69 X10^3/uL (2.7-7.7); Neutrophil % 55.4 % (47-70); Platelet Count 272 K/mm3 (150-450); RBC Distribution Width CV 13.5 % (11.6-14.6); RBC Distribution Width SD 45.5 fl (35.1-43.9); Red Blood Count 4.59 M/mm3 (4.6-6.2); White Blood Count 8.5 K/mm3 (4.4-11.0)
[2024-11-16 16:58] LABS: ALB/GLOB Ratio 1.6 RATIO (0.9-2.4); AST(SGOT) 27 U/L (<=37); Alanine Aminotransfer ALT/SGPT 16 U/L (<=46); Albumin, Serum 4.3 g/dL (3.4-4.8); Alkaline Phosphatase 104 U/L (40-129); Anion Gap 10 (5-15); BUN 9 mg/dL (4-19); BUN/Creat Ratio 9.3 RATIO (10-20); Calcium,Total 9.3 mg/dL (7.6-11.0); Carbon Dioxide 24.9 mmol/L (21.0-32.0); Chloride 104 mmol/L (98-108); Cholesterol 83 mg/dL (<=200); Creatinine, Serum 0.92 mg/dL (0.70-1.20); EST Glomerular Filtration Rate 90 (>60); Globulin 2.7 g/dL (2.2-4.2); Glucose 95 mg/dL (70-99); High Density Lipoprotein 40 mg/dL; Low Density Lipoprotein Calc. 33 mg/dL; PSA,Total- Diagnostic 2.01 ng/mL (0.00-4.00); Potassium 5.1 mmol/L (3.3-5.1); Sodium Level 139 mmol/L (133-145); Total Bilirubin 0.33 mg/dL (0.00-1.30); Triglycerides 50 mg/dL; Very Low Density Lipoprotein 10 mg/dL (5-40); cholesterol:hdl ratio screen 2.09
== END | disposition home or self-care (01) ==
LOC: BIMLAB 13:44
PROVIDERS: PCP Internal Medicine; Referring Provider Internal Medicine; Visit Provider Internal Medicine
DX: E78.5 Hyperlipidemia, unspecified (principal); N40.0 Benign prostatic hyperplasia without lower urinary tract symptoms
CPT/HCPCS: 36415; 80053; 80061; 84153; 85025